=== PATIENT | male | born 1945 | race Caucasian/White ===

== ENCOUNTER 2021-07-25 11:04 | Emergency (ER) | payer OTHER ==
[~2021-07-25] VITALS: Ht 180 cm; Wt 82.0 kg
[~2021-07-25 11:04] MED LIST: ATOR20TA66 PO; Bacitracin TOP; GLIP5TAB13 PO; LSNP20T PO; OMEG1CAP74 PO; OXYC1TAB87 PO
[2021-07-25] MEDS ORDERED: PIPERACILLIN SODIUM/TAZOBACTAM 4.5 GM in NS (IVPB) 100 ML IV ONE (11:30)
[2021-07-25] MEDS ORDERED: VANCOMYCIN INJECTION 1,000 MG in NS (IVPB) 250 ML IV SCH (11:30)
--- NOTE | 2021-07-25 11:33 | ED Lower Extremity ---
General Chief Complaint: Lower Extremity Stated Complaint: RIGHT BIG TOE INFECTED Source: patient Exam Limitations: no limitations History of Present Illness Date Seen by Provider: Jul 25, 2021 Time Seen by Provider: 11:31 Initial Comments To ER by private vehicle with reports of right big toe infection since 07/20/2021. A few months ago he ripped the toenail off of the toe. It got infected, [facility] and was given [facility] and it improved. About a week ago he noticed some redness to the toe. Minimal pain secondary to his diabetic neuropathy. No fever no chills. 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 Onset: last week Severity: moderate Pain/Injury Location: right 1st toe Modifying Factors: Worse With Movement Allergies and Home Medications Allergies Coded Allergies: No Known Drug Allergies (Unverified , 02/21/14) Patient Home Medication List Home Medication List Reviewed: Yes Atorvastatin (Lipitor Tablet) 20 Mg Tablet, 10 MG PO HS, (Reported) Entered as Reported by: OLLIE BUCK on 02/21/142222 Doxycycline Hyclate (Doxycycline Hyclate) 100 Mg Tablet, 100 MG PO BID Prescribed by: LEYDA GOMEZ on 07/25/21 124 Glipizide (Glipizide) 5 Mg Tablet, 1 EACH PO BID, (Reported) Entered as Reported by: OLLIE BUCK on 02/21/142222 Lisinopril (Zestril) 20 Mg Tab, 10 MG PO DAILY, (Reported) Entered as Reported by: OLLIE BUCK on 02/21/142222 [place]-3/Dha/Epa/Fish Oil (Fish Oil 1,000 Mg Softgel) 1,000 Mg Capsule, 3,000 MG PO DAILY, (Reported) Entered as Reported by: OLLIE BUCK on 02/21/142222 Oxycodone Hcl/Acetaminophen (Endocet) 1 Tab Tablet, 1-2 TAB PO Q4H PRN for PAIN Prescribed by: SHAWNA JEFFERS on 02/22/141122 [Bacitracin] 28 GM OINT, 0 GM TOP BID Prescribed by: SHAWNA JEFFERS on 02/22/14 112 Review of Systems Constitutional: see HPI EENTM: see HPI Respiratory: no symptoms reported Cardiovascular: no symptoms reported Genitourinary: no symptoms reported Musculoskeletal: no symptoms reported Skin: no symptoms reported Psychiatric/Neurological: No Symptoms Reported Past Zqunsfo-Twkqvj-Jnpcao Hx Immunizations Up To Date Tetanus Booster (TDap): Unknown Past Medical History Degenerate Disk Disease, Arthritis, Chronic Back Pain Diabetes, Non-Insulin dep Hearing Impairment: Hard of Hearing Family Medical History Cancer 19 FATHER, Onset:Unknown (STOMACH) Family history: Alzheimer's disease 19 MOTHER, Onset:Unknown Family history: Diabetes mellitus AUNT, Onset:Unknown Hearing loss 19 MOTHER, Onset:Unknown Physical Exam Vital Signs Vital Signs - First Documented 07/25/21 11:20 Temp 36.6 Pulse 90 Resp 18 B/P (MAP) 189/94 (125) Pulse Ox 99 Capillary Refill : Height, Weight, BMI Height: 5'11.00" Weight: 175lbs. 0.0oz. [id number]; BMI Method:Stated General Appearance: WD/WN, no apparent distress HEENT: PERRL/EOMI, normal ENT inspection Neck: non-tender, full range of motion Respiratory: no respiratory distress, no accessory muscle use Gastrointestinal: normal bowel sounds, non tender Hips: bilateral hip non-tender, bilateral hip normal inspection, bilateral hip normal range of motion Legs: bilateral leg non-tender, bilateral leg normal inspection, bilateral leg normal range of motion Knees: bilateral knee non-tender, bilateral knee normal inspection, bilateral knee normal range of motion Ankles: bilateral ankle non-tender, bilateral ankle normal inspection, bilateral ankle normal range of motion Feet: right foot other (The right great toe is erythematous and swollen with a large abscess to the plantar surface. Most of the pad of the foot is necrotic after removing the bulla. There is some lymphangitis extending dorsally of the foot into the leg.) Neurologic/Psychiatric: alert, normal mood/affect, oriented x 3 Skin: normal color, warm/dry Progress/Results/Core Measures Results/Orders Lab Results Laboratory Tests Test 07/25/21 11:20 Range/Units White Blood Count 8.6 4.3-11.0 10^3/uL Red Blood Count 4.64 4.30-5.52 10^6/uL Hemoglobin 15.0 13.3-17.7 g/dL Hematocrit 43 40-54 % Mean Corpuscular Volume 93 80-99 fL Mean Corpuscular Hemoglobin 32 25-34 pg Mean Corpuscular Hemoglobin Concent 35 32-36 g/dL Red Cell Distribution Width 13.1 10.0-14.5 % Platelet Count 299 130-400 10^3/uL Mean Platelet Volume 10.1 9.0-12.2 fL Immature Granulocyte % (Auto) 1 % Neutrophils (%) (Auto) 72 42-75 % Lymphocytes (%) (Auto) 18 12-44 % Monocytes (%) (Auto) 7 0-12 % Eosinophils (%) (Auto) 1 0-10 % Basophils (%) (Auto) 1 0-10 % Neutrophils # (Auto) 6.2 1.8-7.8 10^3/uL Lymphocytes # (Auto) 1.6 1.0-4.0 10^3/uL Monocytes # (Auto) 0.6 0.0-1.0 10^3/uL Eosinophils # (Auto) 0.1 0.0-0.3 10^3/uL Basophils # (Auto) 0.0 0.0-0.1 10^3/uL Immature Granulocyte # (Auto) 0.0 0.0-0.1 10^3/uL Prothrombin Time 13.8 12.2-14.7 SEC INR Comment 1.0 0.8-1.4 Activated Partial Thromboplast Time 34 24-35 SEC Sodium Level 132 L 135-145 MMOL/L Potassium Level 4.1 3.6-5.0 MMOL/L Chloride Level 99 98-107 MMOL/L Carbon Dioxide Level 21 21-32 MMOL/L Anion Gap 12 5-14 MMOL/L Blood Urea Nitrogen 13 7-18 MG/DL Creatinine 1.31 H 0.60-1.30 MG/DL Estimat Glomerular Filtration Rate 53 BUN/Creatinine Ratio 10 Glucose Level 361 H 70-105 MG/DL Lactic Acid Level 1.89 0.50-2.00 MMOL/L Calcium Level 8.8 8.5-10.1 MG/DL Corrected Calcium 9.0 8.5-10.1 MG/DL Total Bilirubin 1.6 H 0.1-1.0 MG/DL Aspartate Amino Transf (AST/SGOT) 9 5-34 U/L Alanine Aminotransferase (ALT/SGPT) 20 0-55 U/L Alkaline Phosphatase 91 40-136 U/L Total Protein 7.8 6.4-8.2 GM/DL Albumin 3.8 3.2-4.5 GM/DL My Orders Orders - LEYDA GOMEZ APRN Cbc With Automated Diff (07/25/21 11:29) Comprehensive Metabolic Panel (07/25/21 11:29) Blood Culture (07/25/21 11:29) Sputum Culture (07/25/21 11:29) Urinalysis (07/25/21 11:29) Urine Culture (07/25/21 11:29) Protime With Inr (07/25/21 11:29) Partial Thromboplastin Time (07/25/21 11:29) Chest 1 View, Ap/Pa Only (07/25/21 11:29) Ed Iv/Invasive Line Start (07/25/21 11:29) Ed Iv/Invasive Line Start (07/25/21 11:29) Vital Signs Adult Sepsis Patie Q15M (07/25/21 11:29) O2 (07/25/21 11:29) Remove Rings In Anticipation O (07/25/21 11:29) Lactic Acid Analyzer (07/25/21 11:29) Wound Culture (07/25/21 11:29) Foot, Right, 3 View (07/25/21 11:29) Piperacillin Sodium/Tazobactam (Zosyn Vi (07/25/21 11:30) Vancomycin Injection (Vancomycin Injecti (07/25/21 11:30) Vancomycin Injection (Vancomycin Injecti (07/25/21 12:15) Medications Given in ED Current Medications Medications Dose Ordered Sig/Jaylyn Route Start Time Stop Time Status Last Admin Dose Admin Piperacillin Sod/ Tazobactam Sod 4.5 gm/Sodium Chloride 100 ml @ 200 mls/hr ONCE ONCE IV 07/25/21 11:30 07/25/21 11:59 DC 07/25/21 12:17 200 MLS/HR Vancomycin HCl 1750 mg/Sodium Chloride 517.5 ml @ 258.75 mls/ hr ONCE ONCE IV 07/25/21 12:15 07/25/21 14:14 07/25/21 12:43 258.75 MLS/HR Vital Signs/I&O 07/25/21 11:20 Temp 36.6 Pulse 90 Resp 18 B/P (MAP) 189/94 (125) Pulse Ox 99 Departure Communication (Admissions) Family Conversation Spoke with Dr. Talley, he will see the patient in the clinic next week for possible debridement. 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 Decision time for Depature: 12:37 Referrals: KIMBERLEY TALLEY MD NO,LOCAL PHYSICIAN (PCP) Primary Care Physician Patient Instructions: Diabetes and Infections Add. Discharge Instructions: 1. Meds as directed. Call Dr Danielle office Wednesday for an appointment to be seen for follow up. 2. Return to ER for any concerns in the meantime. Start antibiotics tomorrow All discharge instructions reviewed with patient and/or family. Voiced understanding. Scripts Doxycycline Hyclate (Doxycycline Hyclate) 100 Mg Tablet 100 MG PO BID, #20 TAB 0 Refills Prov: LEYDA GOMEZ APRN 07/25/21 LEYDA GOMEZ APRN Jul 25, 2021 11:33
[2021-07-25 11:39] LABS: BASOPHILS % (AUTO) 1 % (0-10); EOSINOPHILS # (AUTO) 0.1 10^3/uL (0.0-0.3); EOSINOPHILS % (AUTO) 1 % (0-10); HEMATOCRIT 43 % (40-54); LYMPHOCYTES # (AUTO) 1.6 10^3/uL (1.0-4.0); LYMPHOCYTES % (AUTO) 18 % (12-44); MEAN CORPUSCULAR HEMOGLOBIN 32 pg (25-34); MEAN CORPUSCULAR HGB CONC 35 g/dL (32-36); MEAN CORPUSCULAR VOLUME 93 fL (80-99); MEAN PLATELET VOLUME 10.1 fL (9.0-12.2); MONOCYTES # (AUTO) 0.6 10^3/uL (0.0-1.0); MONOCYTES % (AUTO) 7 % (0-12); NEUTROPHILS # (AUTO) 6.2 10^3/uL (1.8-7.8); NEUTROPHILS % (AUTO) 72 % (42-75); PLATELET COUNT 299 10^3/uL (130-400); WHITE BLOOD COUNT 8.6 10^3/uL (4.3-11.0)
[2021-07-25 11:53] LABS: PROTHROMBIN TIME PATIENT 13.8 SEC (12.2-14.7)
[2021-07-25 12:00] LABS: ALBUMIN 3.8 GM/DL (3.2-4.5); BILIRUBIN,TOTAL 1.6 MG/DL (0.1-1.0); CALCIUM 8.8 MG/DL (8.5-10.1); CREATININE SERUM 1.31 MG/DL (0.60-1.30); POTASSIUM 4.1 MMOL/L (3.6-5.0); TOTAL PROTEIN 7.8 GM/DL (6.4-8.2)
[2021-07-25] MEDS ORDERED: VANCOMYCIN 1,750 MG/NS 500 ML IVPB IV ONE ×2 (12:15)
--- NOTE | 2021-07-25 12:27 | Diagnostic Imaging Report ---
INDICATION: Sepsis Frontal chest obtained at 11:33 a.m. Heart and mediastinal silhouette are normal in appearance. The lungs are clear. There is no pneumothorax or pleural fluid. IMPRESSION: Negative chest. Dictated by: Dictated on workstation # [id number]
--- NOTE | 2021-07-25 12:29 | Diagnostic Imaging Report ---
INDICATION: Sepsis, infection in right great toe. AP, oblique, and lateral views of the right foot are obtained No fracture or acute bony abnormality is seen. There is marked degenerative change of the 1st and 2nd MTP joints. There are diffuse degenerative changes throughout the interphalangeal joints. There is a small area of fairly well-defined lucency in the 1st distal phalanx along its medial aspect near the interphalangeal joint, this may represent subchondral cyst although infection not entirely excluded. No definite cortical erosion is seen IMPRESSION: Underlying degenerative findings of the right foot as above. No acute fracture. Small area of lucency in the 1st distal phalanx near the interphalangeal joint is seen, which may represent a subchondral cyst, infection is not excluded but there is no overt cortical erosion. Suggest follow-up as clinically warranted. Dictated by: Dictated on workstation # [id number]
[2021-07-25] MEDS ORDERED: DOXY100T2 PO (12:46)
[2021-07-25 16:01] VITALS: BP 140/81
== END 2021-07-25 16:01 | disposition home or self-care (01) ==
LOC: EDUNIT# 11:04 → ER 11:10
DX: E11.621 Type 2 diabetes mellitus with foot ulcer (principal); L97.513 Non-pressure chronic ulcer of other part of right foot with necrosis of muscle; G89.29 Other chronic pain; M54.9 Dorsalgia, unspecified; Z79.891 Long term (current) use of opiate analgesic
CPT/HCPCS: 36415; 71045; 73630; 80053; 83605; 85025; 85610; 85730; 87040; 87070; 87077; 87186; 87205

== ENCOUNTER 2023-03-18 05:35 | Outpatient (CLI) | payer OTHER ==
[~2023-03-18] VITALS: Ht 180 cm; Wt 82.0 kg
[~2023-03-18 05:35] MED LIST changes: +DOXY100T2 PO
== END 2023-03-19 13:00 | disposition home or self-care (01) ==
LOC: PREOP 05:35
PROVIDERS: ATTEND Surgery
DX: Z01.818 Encounter for other preprocedural examination (principal)

== ENCOUNTER 2023-03-29 08:30 | Day surgery (SDC) | payer OTHER ==
[~2023-03-29] VITALS: Ht 180.3 cm; Wt 82.0 kg
[2023-03-29] MEDS ORDERED: LACTATED RINGERS 1,000 ML IV STA (08:34)
--- NOTE | 2023-03-29 08:50 | Progress Note-Pre Operative ---
Pre-Operative Progress Note Date of Available H&P: Mar 16, 2023 Date H&P Reviewed: Mar 29, 2023 Time H&P Reviewed: 08:44 History & Physical: H&P Reviewed, Patient Examed, No changes noted Pre-Operative Diagnosis: +Hemmartinault JEROME HOFF DO Mar 29, 2023 08:50
[2023-03-29 08:54] VITALS: BP 162/80
[2023-03-29] MEDS ORDERED: PROPOFOL INJECTION 50 ML IV ONE ×2 (09:48→10:12)
[2023-03-29] MEDS ORDERED: MIDAZOLAM 2 MG/2 ML (VERSED) VIAL ONE (09:51)
--- NOTE | 2023-03-29 10:26 | Anesthesia-General Post-Op ---
MAC Patient Condition Mental Status/LOC: Same as Preop Cardiovascular: Satisfactory Nausea/Vomiting: Absent Respiratory: Satisfactory Pain: Controlled Complications: Absent Post Op Complications Complications None Follow Up Care/Instructions Patient Instructions None needed. Anesthesiology Discharge Order Discharge Order Patient is doing well, no complaints, stable vital signs, no apparent adverse anesthesia problems. No complications reported per nursing. MARIA R CHU CRNA Mar 29, 2023 10:26
[2023-03-29 10:30] VITALS: BP 114/60
--- NOTE | 2023-03-29 10:33 | Progress Note-Post Operative ---
Post-Operative Progess Note Surgeon (s)/Bag Machine Tender (s) Surgeon JEROME HOFF DO Bag Machine Tender: LISANDRA Spencer student Pre-Operative Diagnosis +Hemoccult Post-Operative Diagnosis polyps int hemorrhoids Procedure & Operative Findings Date of Procedure 03/29/23 Procedure Performed/Findings Colonoscopy with snare polypectomy Colonoscopy with hot bx PROCEDURE NOTE: After informed consent was obtained, the patient was brought to the endoscopy suite, placed in bed in left lateral decubitus position. He was administered IV sedation by the SKIN THERAPIST who then monitored his vitals the entire time, heart rate, blood pressure and pulse ox and the scope was inserted, he had very twisty colon but able to push all the way to about [address] in, in the transverse colon I found two small polyps, elected to remove them with hot biopsy. Finally able to get past this area and pushed into the cecum. I took a picture of appendiceal orifice and noted the ileocecal valve. Then slowly withdrew the scope insufflating to look circumferentially at the bender starting in the cecum. I found a larger polyp in the cecum that I elected to remove with the snare. Continued up the ascending colon where I found some more polyps and removed them with the snare. Next, to the hepatic flexure, then down the transverse colon; where I again found a large polyp and removed with the snare. Finally, to the splenic flexure, into the descending colon down into the sigmoid and then into the rectal vault. I retroflexed the scope and took a picture of the internal hemorrhoids. The patient tolerated the procedure. He was recovered in endoscopy suite. Recommended for repeat colonoscopy in 3 years. Anesthesia Type IV sedation by SKIN THERAPIST Estimated Blood Loss Estimated blood loss (mL): scant Specimens/Packing Specimens Removed transverse polyp x 2 asc colon polyp x 2 cecal polyp JEROME HOFF DO Mar 29, 2023 10:33
--- NOTE | 2023-03-29 10:34 | Endoscopy Discharge Instruct ---
Endo Procedure/Findings Findings 1.: Polyp 2.: Internal Hemorrhoids Discharge Instructions - Activity: You might feel a little sleepy until tomorrow. This is due to the medicine you received to relax you. Until tomorrow, you should: NOT drive a car, operate machinery or power tools. NOT drink any alcoholic beverages. NOT make any important decisions or sign importortant papers. Do not return to work until tomorrow, unless otherwise instructed. Resume previous activities tomorrow. Diet: Start by taking liquids. If you tolerate liquids, advance to solid food. 1.: Colonscopy in 3 years Notify Physician - If you experience excessive bleeding, unusual abdominal pain, fever, or chest pain, contact your doctor immediately. Follow-Up: Other Follow up in my office in one week JEROME HOFF DO Mar 29, 2023 10:34
[2023-03-29 10:35] VITALS: BP 117/68
[2023-03-29 10:40] VITALS: BP 116/68
[2023-03-29 11:10] VITALS: BP 143/72
[2023-03-29 11:17] VITALS: BP 143/72
== END 2023-03-29 11:17 | disposition home or self-care (01) ==
LOC: ENDO 08:30
PROVIDERS: ATTEND Surgery
DX: Z12.11 Encounter for screening for malignant neoplasm of colon (principal); D12.3 Benign neoplasm of transverse colon; D12.2 Benign neoplasm of ascending colon; D12.0 Benign neoplasm of cecum; K64.8 Other hemorrhoids; E11.9 Type 2 diabetes mellitus without complications; Z79.84 Long term (current) use of oral hypoglycemic drugs; Z87.891 Personal history of nicotine dependence